=== PATIENT | female | born 1980 | race American Indian/Alaskan Native ===

== ENCOUNTER 2021-05-17 09:12 | Inpatient (IN) | payer BC ==
[2021-05-17 13:08] LABS: Alanine Aminotransferase 15 units/L (7-56); Albumin 3.3 g/dL (3.9-5); Blood Urea Nitrogen 7 mg/dL (7-17); Hemolysis Index 113
[2021-05-17 13:12] LABS: BUN/Creatinine Ratio 14
[2021-05-17] MEDS ORDERED: METOCLOPRAMIDE 10 MG/2 ML INJ IV SCH (13:15)
[2021-05-17] MEDS ORDERED: FAMOTIDINE 20 MG/2 ML INJ IV SCH (13:15)
[2021-05-17] MEDS ORDERED: BICITRA ORAL LIQD 30ML PO SCH (13:15)
[2021-05-17] MEDS ORDERED: LACTATED RINGERS 1,000 ML IV SCH (13:15)
[2021-05-17 13:49] LABS: Basophils % (Auto) 0.5 % (0.0-1.8); Eosinophils % (Auto) 0.2 % (0.0-4.3); Hematocrit 35.7 % (30.3-42.9); Hemoglobin 11.3 gm/dl (10.1-14.3); Lymphocytes # (Auto) 1.5 K/mm3 (1.2-5.4); Lymphocytes % (Auto) 17.4 % (13.4-35.0); Mean Corpuscular HGB Conc 32 % (30-34); Mean Corpuscular Volume 82 fl (79-97); Monocytes # (Auto) 0.6 K/mm3 (0.0-0.8); Monocytes % (Auto) 7.2 % (0.0-7.3); Platelet Count 357 K/mm3 (140-440); Red Blood Count 4.37 M/mm3 (3.65-5.03); Red Cell Distribution Width 19.8 % (13.2-15.2)
[2021-05-17] MEDS ORDERED: ceFAZolin/Water 2 GM/20 ML 2 GM/20 ML SYRINGE IV NR (14:00)
[2021-05-17] MEDS ORDERED: OXYTOCIN DRIP 30 UNITS/500 ML BAG IV SCH ×2 (14:00→21:25)
[2021-05-17] MEDS ORDERED: BUPIVACAINE/PF (0.5%) 5 MG/1 ML 30 ML VIAL INFILTRATI ONE (15:37)
[2021-05-17] MEDS ORDERED: KETOROLAC 30 MG/1 ML INJ ONE (15:37)
[2021-05-17] MEDS ORDERED: ONDANSETRON 4 MG/2 ML INJ ONE ×2 (15:37)
[2021-05-17] MEDS ORDERED: LIDOCAINE MPF (2%) 20 MG/1 ML VIAL 5 ML ONE (15:37)
[2021-05-17] MEDS ORDERED: dexAMETHasone 20 MG/5 ML VIAL ONE (15:38)
[2021-05-17] MEDS ORDERED: MIDAZOLAM 2 MG/2 ML INJ ONE (15:38)
[2021-05-17] MEDS ORDERED: KETAMINE/STERILE WATER 50 MG/ML SYRINGE ONE (15:39)
--- NOTE | 2021-05-17 15:48 | Anesthesia Day of Surgery ---
Anesthesia Day of Surgery - Day of Surgery Patient Examined: Yes Patient H&P Reviewed: Yes Patient is NPO: Yes
--- NOTE | 2021-05-17 15:48 | Anesthesia Consultation ---
Anesthesia Consult and Med Hx Date of service: 05/17/21 - Airway Anesthetic Teeth Evaluation: Good ROM Head & Neck: Adequate Mental/Hyoid Distance: Adequate Mallampati Class: Class II Intubation Access Assessment: Probably Good - Pulmonary Exam CTA: Yes - Cardiac Exam Cardiac Exam: RRR - Pre-Operative Health Status ASA Pre-Surgery Classification: ASA3 Proposed Anesthetic Plan: Spinal - Pulmonary Hx Asthma: No - Cardiovascular System Hx Hypertension: Yes - Central Nervous System Hx Seizures: No Hx Psychiatric Problems: No - Endocrine Hx Renal Disease: No Hx Hypothyroidism: Yes Hx Hyperthyroidism: No - Hematic Hx Anemia: No Hx Sickle Cell Disease: No - Other Systems Hx Alcohol Use: No Hx Obesity: Yes
--- NOTE | 2021-05-17 16:07 | History and Physical Report ---
History of Present Illness Date of examination: 05/17/21 Date of admission: 05/17/2021 Chief complaint: My baby History of present illness: Pt is 40 year old who presents at 35 weeks with IUFD found this morning on ultrasound. Pt has a history of chronic hypertension and diabetes controlled with oral medications. Pt entered care in the 2nd trimester with Dr Macario and has had a relatively stable course until today when on routine ultrasound, she was found to have a demise. Past History Past Medical History: hypertension, diabetes Past Surgical History: cholecystectomy Family/Genetic History: none Social history: - Obstetrical History Expected Date of Delivery: 06/17/21 Actual Gestation: 35 Week(s) 4 Day(s) : 4 Para: 3 Number of Living Children: 3 Medications and Allergies Allergies Allergy/AdvReac Type Severity Reaction Status Date / Time Penicillins Allergy Hives Verified 05/17/21 11:30 Active Meds: Active Medications Citric Acid/Sodium Citrate (Bicitra Oral Liqd 30ml) 30 ml PO ONCE ALYSA Stop: 05/17/21 23:00 Last Admin: 05/17/21 15:17 Dose: 30 ml Famotidine (Famotidine 20 Mg/2 Ml Inj) 20 mg IV ONCE ALYSA Stop: 05/17/21 23:00 Last Admin: 05/17/21 15:17 Dose: 20 mg Lactated Ringer's (Lactated Ringers) 1,000 mls @ 2,250 mls/hr IV PREOP ALYSA Stop: 05/18/21 13:42 Last Admin: 05/17/21 13:40 Dose: 2,250 mls/hr Oxytocin/Sodium Chloride (Pitocin/Ns 30 Unit/500ml) 30 units in 500 mls @ 0 mls/hr IV TITR ALYSA; Protocol Cefazolin Sodium (Ancef/Sterile Water 2 Gm/20 Ml) 2 gm in 20 mls @ 80 mls/hr IV PREOP NR; Protocol Stop: 05/17/21 23:00 Clindamycin HCl (Cleocin 900 Mg/50 Ml) 900 mg in 50 mls @ 100 mls/hr IV PREOP NR; Protocol Stop: 05/17/21 23:00 Metoclopramide HCl (Metoclopramide 10 Mg/2 Ml Inj) 10 mg IV ONCE ALYSA Stop: 05/17/21 23:00 Last Admin: 05/17/21 15:17 Dose: 10 mg Review of Systems All systems: negative Constitutional: fatigue, weakness Genitourinary: deferred - Vital Signs Vital signs: Vital Signs Pulse BP 96 H 175/82 05/17/21 10:15 05/17/21 10:15 Temp Pulse Resp BP Pulse Ox 99.2 F 94 H 20 172/93 05/17/21 10:26 05/17/21 12:48 05/17/21 10:26 05/17/21 12:48 - Physical Exam Breasts: Positive: deferred Cardiovascular: Regular rate, Normal S1, Normal S2 Lungs: Positive: Clear to auscultation, Normal air movement Abdomen: Positive: normal appearance, soft, normal bowel sounds. Negative: distention, tenderness Genitourinary (Female): Positive: normal external genitalia, normal perenium Vulva: both: normal Vagina: Positive: normal moisture. Negative: discharge Cervix: Negative: lesion, discharge Uterus: Positive: normal size, normal contour Adnexa: both: normal Anus/Rectum: Positive: normal perianal skin, heme negative. Negative: rectal mass, hemorrhoids Extremities: Deep Tendon Reflex Grade: Normal +2 - Obstetrical FHR: other Results Result Diagrams: 05/17/21 10:50 05/17/21 10:50 Abnormal lab results 05/17/21 05/17/21 Range/Units 10:50 10:50 MCH 26 L (28-32) pg RDW 19.8 H (13.2-15.2) % Seg Neutrophils % 74.7 H (40.0-70.0) % Carbon Dioxide 19 L (22-30) mmol/L Creatinine 0.5 L (0.6-1.2) mg/dL Glucose 104 H (65-100) mg/dL Alkaline Phosphatase 151 H (35-129) units/L Albumin 3.3 L (3.9-5) g/dL All other labs normal. Assessment and Plan IUFD at 35 weeks here for management. Pt requested primary instead of induction process. Will now proceed with primary . Consents signed and placed on chart
[2021-05-17] MEDS ORDERED: SODIUM CHLORIDE 0.9% IRR 1,500 ML BOTTLE IR ONE (16:37)
[2021-05-17] MEDS ORDERED: WATER FOR IRRIG STERILE 1,500 ML BOTTLE IR ONE (16:37)
[2021-05-17] MEDS ORDERED: OXYTOCIN 10 UNIT/1 ML INJ ONE (17:24)
--- NOTE | 2021-05-17 17:33 | Procedure Note ---
OB Delivery Note - Delivery Date of Delivery: 05/17/21 Surgeon: JOSE FELIX Estimated blood loss: other (400cc) - Section Preop diagnosis: other (IUFD) Postop diagnosis: same section procedure: primary low transverse Disposition: PACU Complications: none Narrative: see op report - Infant A at 1 minute: 0 at 5 minutes: 0 Gender: Female (6 pounds 11 ounces)
--- NOTE | 2021-05-17 18:20 | Operative Report ---
Operative Report Operative Report: Preoperative diagnosis: Intrauterine at 35-47 weeks 2. IUFD 3. Patient refused trial of labor Postoperative diagnosis: Same Procedure: Primary low transverse section Surgeon: Dr. Emily Macario EBL: 400 cc Urine output: 200 mL IV fluids: 1100 cc mL Findings: Nonviable female in the vertex presentation. Weight 6 lbs. 11 oz. 3030 g Apgars 8 and 9. Otherwise normal pelvic anatomy Specimens: Placenta Complications: None Procedure: The patient was admitted to the OR with IV running and in place. She was properly identified as herself. She was given spinal anesthesia in the OR without difficulty. She was placed in the dorsal supine position with a leftward tilt. A Adkins catheter was inserted. She was then prepped and draped in the normal sterile fashion. An Allis test was used to confirm adequate anesthesia. Once confirmed, the incision was made with the scalpel and carried to the underlying fascia using the scalpel and the Bovie. The fascia was incised in the midline and incision was extended bilaterally using the curved Flanagan scissors. The fascia was then dissected from the underlying rectus muscles in a series of sharp and blunt dissection using the Flanagan scissors. Muscles were in the in the midline sharply using Metzenbaum scissors and the peritoneum was entered into bluntly using the surgeon's fingers. A bladder blade was then placed into the incision to protect the bladder. Following this the bladder flap was created. Hysterotomy incision was then made in the scalpel. Upon uterine entry, the amniotic sac was ruptured for clear fluid. The infant was then delivered without difficulty. Her mouth and nose were suctioned on the field. The cord was clamped and cut and he was handed to the L&D staff. The uterus was then exteriorized and cleared of all clots and debris. The hysterotomy incision was then closed in a running locked fashion using 0 Vicryl. The abdomen was then copiously irrigated with warm normal saline. Attention was turned the the fallopian tubes. Each tube was identified and followed out the the fimbriated end. Each tube was grasped in the midportion and ligated in the [place] style Tubal ligation. Following this the uterus was replaced into the abdominal cavity. At this point the muscles were reapproximated in the midline using individual sutures of 0 Vicryl. Following this the fascia was closed in a running fashion using 0 Vicryl. Tissue was then copiously irrigated. Retention sutures were placed in the subcutaneous fat tissue Skin was closed in a running fashion using 3-0 Monocryl. The sponge lap needle and instrument counts were correct 2. The patient tolerated the procedure well. She was taken to recovery in stable condition.
[2021-05-17] MEDS ORDERED: NalbUPHINE 10 MG/1 ML INJ IV PRN (20:05)
[2021-05-17] MEDS ORDERED: ACETAMINOPHEN 325 MG TAB PO PRN (20:05)
[2021-05-17] MEDS ORDERED: MINERAL OIL 30 ML ORAL LIQD PO PRN (20:05)
[2021-05-17] MEDS ORDERED: fentaNYL 100 MCG/2 ML INJ IV PRN (20:05)
[2021-05-17] MEDS ORDERED: MORPHINE 4 MG/1 ML INJ IV PRN (21:25)
[2021-05-17] MEDS ORDERED: SIMETHICONE 80 MG CHEW TAB PO PRN (21:25)
[2021-05-17] MEDS ORDERED: NALOXONE 0.4 MG/1 ML INJ IV PRN (21:25)
[2021-05-17] MEDS ORDERED: ONDANSETRON 4 MG/2 ML INJ IV PRN (21:25)
[2021-05-17] MEDS ORDERED: WITCH HAZEL/ GLYCERIN PAD TP PRN (21:25)
[2021-05-17] MEDS ORDERED: LANOLIN/ZINC/DIMETHICONE (LANSINOH) 7 GM TP PRN (21:25)
[2021-05-17] MEDS: KETOROLAC 30 MG/1 ML INJ IV PRN (23:50)
[2021-05-18] MEDS: oxyCODONE /ACETAMINOPHEN 5-325MG TAB PO PRN ×3 (00:36→12:35)
[2021-05-18] MEDS ORDERED: NIFEdipine XL 60 MG TAB PO ONE (01:25)
[2021-05-18] MEDS: hydrALAZINE 20 MG/1 ML INJ IV PRN ×3 (03:05→04:27)
[2021-05-18] MEDS: IBUPROFEN 800 MG TAB PO PRN ×2 (04:05→11:04)
--- NOTE | 2021-05-18 05:46 | Event Note ---
Date: 05/18/21 On-call provider notified that BP was elevated from 160-180/90s with requirement of 3 doses of hydralazine. Plan to transfer pt back to labor and delivery for treatment of superimposed preeclampsia with magnesium sulfate for seizure prophylaxis.
[2021-05-18] MEDS ORDERED: CALCIUM GLUCONATE 1000 MG/10 ML INJ IV PRN (07:35)
[2021-05-18] MEDS ORDERED: MAGNESIUM SULFATE 4 GM/100 ML BAG IV ONE (07:35)
[2021-05-18] MEDS ORDERED: LACTATED RINGERS 1,000 ML IV SCH (07:45)
[2021-05-18] MEDS ORDERED: CALCIUM GLUCONATE 1,000 MG/NS 100 ML PREMIX IV PRN (08:00)
[2021-05-18] MEDS: LACTATED RINGERS 1,000 ML IV SCH (08:28)
[2021-05-18] MEDS: MAGNESIUM SULFATE 40GM/1000ML 40 GM/1,000 ML BAG IV SCH (08:29)
--- NOTE | 2021-05-18 09:25 | Post Anesthesia Evaluation ---
- Post Anesthesia Evaluation Patient Participated: Yes Airway Patent: Yes Stable Respiratory Function: Yes Nausea/Vomiting: No Temp > 96.8F: Yes Pain Manageable: Yes Adequeate Hydration: Yes Anesthesia Complications: No Block Receding Appropriately: Yes
[2021-05-18] MEDS: KETOROLAC 30 MG/1 ML INJ IV PRN ×2 (15:58→21:09)
[2021-05-18] MEDS ORDERED: DEXTROSE 50% IN WATER (25GM) 50 ML SYRINGE IV PRN (16:37)
[2021-05-18] MEDS ORDERED: DEXTROSE 10% *Hypoglycemia IV PRN (16:45)
--- NOTE | 2021-05-18 17:17 | Progress Note ---
Assessment and Plan A: POD#1 s/p primary at 35 wks for IUFD Chronic HTN with superimposed preeclamspia on Magensium sulfate for seizure prophylaxis. Pt declines Procardia. Begin Labetalol 200 mg BID. Prediabetic per pt, [place] with sliding scale insulin PRN P: Continue routine postop care Closely monitor clinical status Subjective - Subjective Date of service: 05/18/21 Principal diagnosis: s/p primary , IUFD, morbid obesity, prediabetic, preeclampsia Interval history: Pt without complaints. + flatus. No bowel movement yet. Patient reports: appetite normal, pain well controlled, flatus, no voiding normally (aponte ), no bowel movement, no ambulating normally (SCDs in place ) [place]: Objective - Vital Signs Latest vital signs: Vital Signs Temp Pulse Resp BP BP Pulse Ox Pulse Ox 05/18/21 17:09 100 H 100 05/18/21 17:04 107 H 100 05/18/21 17:00 96 H 152/79 05/18/21 16:59 100 H 100 05/18/21 16:54 100 H 100 05/18/21 16:49 97 H 100 05/18/21 16:44 107 H 100 05/18/21 16:39 110 H 100 05/18/21 16:34 99 H 100 05/18/21 16:29 104 H 100 05/18/21 16:24 107 H 100 05/18/21 16:19 98 H 97 05/18/21 16:14 89 100 05/18/21 16:09 94 H 100 05/18/21 16:04 86 100 05/18/21 16:00 98.0 F 89 16 146/72 146/72 100 05/18/21 15:59 89 100 05/18/21 15:54 92 H 100 05/18/21 15:49 94 H 100 05/18/21 15:44 92 H 100 05/18/21 15:39 91 H 100 05/18/21 15:34 95 H 100 05/18/21 15:29 92 H 99 05/18/21 15:24 107 H 100 05/18/21 15:19 92 H 99 05/18/21 15:14 109 H 100 05/18/21 15:09 99 H 98 05/18/21 15:04 105 H 99 05/18/21 15:00 93 H 16 135/70 05/18/21 14:59 90 99 05/18/21 14:54 108 H 99 05/18/21 14:49 100 H 100 05/18/21 14:44 96 H 100 05/18/21 14:39 103 H 100 05/18/21 14:34 112 H 100 05/18/21 14:29 97 H 99 05/18/21 14:24 103 H 100 05/18/21 14:19 100 H 100 05/18/21 14:14 94 H 100 05/18/21 14:09 95 H 100 05/18/21 14:04 105 H 100 05/18/21 14:00 98.2 F 16 98 97 05/18/21 13:59 94 H 100 05/18/21 13:54 97 H 100 05/18/21 13:50 93 H 143/82 05/18/21 13:49 95 H 100 05/18/21 13:44 92 H 100 05/18/21 13:39 100 H 100 05/18/21 13:34 83 99 05/18/21 13:29 84 99 05/18/21 13:24 84 100 05/18/21 13:20 93 H 136/75 05/18/21 13:19 91 H 99 05/18/21 13:14 84 100 05/18/21 13:09 80 99 05/18/21 13:04 98 H 100 05/18/21 12:59 89 100 05/18/21 12:54 91 H 100 05/18/21 12:51 84 154/82 05/18/21 12:49 87 100 05/18/21 12:44 82 99 05/18/21 12:39 86 99 05/18/21 12:34 82 100 05/18/21 12:29 88 100 05/18/21 12:24 86 99 05/18/21 12:20 89 137/75 05/18/21 12:19 103 H 100 05/18/21 12:14 88 100 05/18/21 12:12 99 05/18/21 12:09 95 H 100 05/18/21 12:04 98 H 100 05/18/21 11:59 81 100 05/18/21 11:13 99 H 100 05/18/21 11:08 102 H 99 05/18/21 11:03 113 H 99 05/18/21 10:58 103 H 100 05/18/21 10:53 106 H 100 05/18/21 10:49 106 H 157/84 05/18/21 10:48 106 H 100 05/18/21 10:43 110 H 100 05/18/21 10:38 110 H 100 05/18/21 10:37 107 H 149/74 05/18/21 10:33 102 H 100 05/18/21 10:28 97 H 100 05/18/21 10:23 103 H 100 05/18/21 10:19 104 H 162/74 05/18/21 10:18 107 H 100 05/18/21 10:15 98 05/18/21 10:13 96 H 100 05/18/21 10:08 97 H 100 05/18/21 10:03 109 H 100 05/18/21 09:58 92 H 99 05/18/21 09:53 98 H 100 05/18/21 09:49 101 H 136/69 05/18/21 09:48 105 H 100 05/18/21 09:43 103 H 100 05/18/21 09:38 100 H 100 05/18/21 09:33 96 H 99 05/18/21 09:28 93 H 100 05/18/21 09:23 97 H 100 05/18/21 09:19 94 H 142/68 05/18/21 09:18 98 H 100 05/18/21 09:13 105 H 100 05/18/21 09:08 94 H 100 05/18/21 09:03 89 100 05/18/21 08:58 90 100 05/18/21 08:53 103 H 99 05/18/21 08:48 86 99 05/18/21 08:41 88 154/74 05/18/21 08:36 90 155/77 05/18/21 08:31 93 H 160/84 05/18/21 08:30 99 05/18/21 08:27 93 H 147/83 05/18/21 06:45 86 16 147/84 98 05/18/21 06:31 93 H 16 140/80 90 05/18/21 06:16 91 H 16 155/82 05/18/21 05:58 94 H 155/82 98 05/18/21 05:42 83 16 173/89 99 03/12/22 05:26 92 H 16 163/96 99 05/18/21 05:06 90 16 177/88 98 05/18/21 05:01 87 16 175/84 97 05/18/21 04:53 91 H 16 180/92 100 05/18/21 04:31 88 16 180/101 86 05/18/21 04:27 84 188/101 05/18/21 04:26 188/101 05/18/21 04:22 84 16 189/103 100 05/18/21 04:06 92 H 16 180/87 98 05/18/21 04:01 87 16 191/89 99 05/18/21 03:56 87 16 179/95 100 05/18/21 03:51 16 177/101 05/18/21 03:47 100 H 185/95 05/18/21 03:46 87 16 185/95 100 05/18/21 03:05 87 187/110 05/18/21 01:08 91 H 16 165/95 99 05/18/21 00:48 88 16 167/105 100 05/18/21 00:36 18 05/17/21 20:00 100 05/17/21 19:40 97.7 F 89 14 130/80 100 05/17/21 18:40 97.7 F 100 H 20 126/81 100 05/17/21 18:25 94 H 17 123/78 100 05/17/21 18:10 100 H 12 116/75 100 05/17/21 17:55 95 H 16 112/75 100 05/17/21 17:50 88 16 107/71 100 05/17/21 17:45 96 H 18 111/72 100 05/17/21 17:40 98.4 F 92 H 16 112/65 100 Intake and Output 05/18/21 05/18/21 05/18/21 06:59 14:59 22:59 Intake Total 360 Output Total 390 975 175 Balance 2 -475 Intake: Oral 120 Intake, Free Water 240 Output: Urine 390 975 175 Indwelling Catheter 390 975 175 Other: Total, Intake Amount 120 Total, Output Amount 100 175 175 - Exam Breasts: Present: deferred Abdomen: Present: soft (obese, tympanic ) Uterus: Present: fundal height below umbilicus Extremities: Present: edema (SCDs in place ) Incision: Present: dressed - Labs Labs: Abnormal lab results 05/18/21 Range/Units 13:59 Magnesium 4.10 H (1.7-2.3) mg/dL
[2021-05-18 17:37] LABS: Hematocrit 27.1 % (30.3-42.9); Hemoglobin 9.4 gm/dl (10.1-14.3)
[2021-05-19] MEDS: KETOROLAC 30 MG/1 ML INJ IV PRN (06:00)
[2021-05-19] MEDS: LACTATED RINGERS 1,000 ML IV SCH (06:01)
[2021-05-19] MEDS: MAGNESIUM SULFATE 40GM/1000ML 40 GM/1,000 ML BAG IV SCH (06:01)
[2021-05-19] MEDS: oxyCODONE /ACETAMINOPHEN 5-325MG TAB PO PRN ×2 (08:10→13:27)
[2021-05-19] MEDS ORDERED: LACTULOSE 20 GM/30 ML ORAL LIQD PO ONE (09:51)
--- NOTE | 2021-05-19 09:56 | Progress Note ---
Assessment and Plan A: POD#2 s/p primary at 35 wks for IUFD Chronic HTN with superimposed preeclamspia on Magensium sulfate for seizure prophylaxis. Pt declines Procardia. Begin Labetalol 200 mg BID. Prediabetic per pt, Acc[place]ce[place] with sliding scale insulin PRN Morbid Obesity Anemia- asymptomatic P: Continue routine postop care Discharge later today with follow up on 05/21/[address] Macario Subjective - Subjective Date of service: 05/19/21 Principal diagnosis: s/p primary , IUFD, morbid obesity, prediabetic, preeclampsia Interval history: Pt without complaints. + flatus. She is anxious to go home and be in her own space. She has contacted the home to begin arrangements. She also has an appt with Dr Macario scheduled for Friday May 21, 2021. Patient reports: appetite normal, voiding normally, pain well controlled, flatus, ambulating normally, no bowel movement [place]: Objective - Vital Signs Latest vital signs: Vital Signs Temp Pulse Resp BP BP BP Pulse Ox 05/19/21 09:01 93 H 87 05/19/21 09:00 93 H 100 05/19/21 08:58 85 144/73 05/19/21 08:55 89 100 05/19/21 08:50 87 100 05/19/21 08:45 89 100 05/19/21 08:40 91 H 100 05/19/21 08:35 90 100 05/19/21 08:30 100 H 100 05/19/21 08:25 99 H 100 05/19/21 08:20 98 H 100 05/19/21 08:18 90 94 05/19/21 08:15 90 100 05/19/21 08:10 89 100 05/19/21 08:05 103 H 100 05/19/21 08:00 98.3 F 79 18 136/61 100 05/19/21 07:55 77 99 05/19/21 07:50 82 100 05/19/21 07:45 94 H 100 05/19/21 07:40 83 99 05/19/21 07:35 80 100 05/19/21 07:30 85 96 05/19/21 07:29 80 92 05/19/21 07:25 80 99 05/19/21 07:20 81 99 05/19/21 07:15 82 100 05/19/21 07:10 101 H 100 05/19/21 07:08 84 94 05/19/21 07:05 79 98 05/19/21 07:00 79 142/71 99 05/19/21 06:55 81 100 05/19/21 06:50 76 100 05/19/21 06:45 77 100 05/19/21 06:40 76 100 05/19/21 06:35 75 100 05/19/21 06:30 94 H 100 05/19/21 06:25 78 100 05/19/21 06:20 79 100 05/19/21 06:15 78 100 05/19/21 06:10 82 100 05/19/21 06:05 78 100 05/19/21 06:00 87 18 135/71 100 05/19/21 05:55 82 100 05/19/21 05:50 86 100 05/19/21 05:45 104 H 100 05/19/21 05:40 88 100 05/19/21 05:35 86 100 05/19/21 05:30 101 H 100 05/19/21 05:25 80 100 05/19/21 05:20 76 100 05/19/21 05:15 85 100 05/19/21 05:10 80 100 05/19/21 05:05 83 100 05/19/21 05:00 77 141/72 100 05/19/21 04:55 80 99 05/19/21 04:50 80 99 05/19/21 04:45 83 100 05/19/21 04:40 84 97 05/19/21 04:38 82 92 05/19/21 04:35 85 96 05/19/21 04:33 88 83 L 05/19/21 04:30 77 99 05/19/21 04:25 78 99 05/19/21 04:20 78 99 05/19/21 04:15 79 100 05/19/21 04:11 82 90 05/19/21 04:10 79 91 05/19/21 04:05 87 99 05/19/21 04:00 78 126/67 100 05/19/21 03:55 78 99 05/19/21 03:50 80 99 05/19/21 03:45 82 99 05/19/21 03:40 76 98 05/19/21 03:35 82 99 05/19/21 03:30 78 99 05/19/21 03:25 77 99 05/19/21 03:20 79 99 05/19/21 03:15 84 99 05/19/21 03:10 80 99 05/19/21 03:05 79 99 05/19/21 03:00 81 16 131/71 131/71 100 05/19/21 01:55 84 100 05/19/21 01:50 79 99 05/19/21 01:45 80 99 05/19/21 01:40 79 98 05/19/21 01:35 78 98 05/19/21 01:30 79 98 05/19/21 01:25 77 98 05/19/21 01:20 78 98 05/19/21 01:15 81 98 05/19/21 01:10 80 99 05/19/21 01:05 78 99 05/19/21 01:00 77 18 122/67 122/67 100 05/19/21 00:54 77 99 05/19/21 00:49 87 99 05/19/21 00:44 80 98 05/19/21 00:39 80 98 05/19/21 00:34 84 98 05/19/21 00:29 79 98 05/19/21 00:24 77 98 05/19/21 00:19 91 H 100 05/19/21 00:17 88 94 05/19/21 00:14 80 99 05/19/21 00:09 78 99 05/19/21 00:04 76 99 05/19/21 00:00 98.3 F 81 18 121/60 121/60 99 05/18/21 23:59 82 100 05/18/21 23:54 88 99 05/18/21 23:49 79 98 05/18/21 23:44 78 98 05/18/21 23:39 77 98 03 23:34 79 98 03 23:29 82 98 05/18/21 23:24 80 98 05/18/21 23:19 78 98 05/18/21 23:14 79 97 05/18/21 23:09 79 97 03 23:04 77 98 03 23:00 81 16 121/59 121/59 100 05/18/21 22:59 85 100 05/18/21 22:54 81 98 03 22:49 75 98 05/18/21 22:44 79 98 05/18/21 22:39 79 98 05/18/21 22:34 78 98 05/18/21 22:29 79 98 05/18/21 22:24 78 98 05/18/21 22:19 81 98 05/18/21 22:14 90 100 05/18/21 22:09 86 100 05/18/21 22:04 87 98 05/18/21 22:00 98.2 F 85 16 128/65 128/65 98 05/18/21 21:59 89 100 05/18/21 21:54 90 100 05/18/21 21:49 89 100 05/18/21 21:44 90 100 05/18/21 21:39 83 100 05/18/21 21:34 85 100 05/18/21 21:29 104 H 100 05/18/21 21:24 99 H 100 05/18/21 21:19 88 100 05/18/21 21:14 86 100 05/18/21 21:10 94 H 140/70 05/18/21 21:09 87 18 100 05/18/21 21:04 95 H 100 05/18/21 21:00 94 H 18 140/70 140/70 98 05/18/21 20:59 86 100 05/18/21 20:54 85 99 05/18/21 20:49 89 100 05/18/21 20:44 120 H 100 05/18/21 20:39 89 99 05/18/21 20:34 93 H 100 05/18/21 20:29 89 100 05/18/21 20:24 86 100 05/18/21 20:19 93 H 100 05/18/21 20:14 84 100 05/18/21 20:09 92 H 100 05/18/21 20:04 91 H 100 05/18/21 20:00 90 138/67 05/18/21 19:59 89 100 05/18/21 19:54 94 H 100 05/18/21 19:49 100 H 100 05/18/21 19:44 97 H 100 05/18/21 19:39 94 H 100 05/18/21 19:34 89 100 05/18/21 19:29 96 H 100 05/18/21 19:24 84 100 05/18/21 19:19 89 100 05/18/21 19:14 96 H 100 05/18/21 19:09 89 100 05/18/21 19:04 94 H 100 05/18/21 19:00 87 137/69 05/18/21 18:59 89 100 05/18/21 18:54 88 100 05/18/21 18:49 93 H 100 05/18/21 18:44 89 100 05/18/21 18:39 98 H 100 05/18/21 18:34 95 H 100 05/18/21 18:29 93 H 100 05/18/21 18:24 92 H 100 05/18/21 18:19 87 100 05/18/21 18:14 99 H 100 05/18/21 18:09 94 H 100 05/18/21 18:04 90 100 05/18/21 18:00 90 16 137/68 05/18/21 17:59 89 100 05/18/21 17:54 103 H 100 05/18/21 17:49 106 H 100 05/18/21 17:44 93 H 100 05/18/21 17:39 94 H 100 05/18/21 17:34 98 H 100 05/18/21 17:29 108 H 100 05/18/21 17:24 98 H 100 05/18/21 17:19 106 H 100 05/18/21 17:14 109 H 100 05/18/21 17:09 100 H 100 05/18/21 17:04 107 H 100 05/18/21 17:00 96 H 16 152/79 05/18/21 16:59 100 H 100 05/18/21 16:54 100 H 100 05/18/21 16:49 97 H 100 05/18/21 16:44 107 H 100 05/18/21 16:39 110 H 100 05/18/21 16:34 99 H 100 05/18/21 16:29 104 H 100 05/18/21 16:24 107 H 100 05/18/21 16:19 98 H 97 05/18/21 16:14 89 100 05/18/21 16:09 94 H 100 05/18/21 16:04 86 100 05/18/21 16:00 98.0 F 89 16 146/72 146/72 100 05/18/21 15:59 89 100 05/18/21 15:54 92 H 100 05/18/21 15:49 94 H 100 05/18/21 15:44 92 H 100 05/18/21 15:39 91 H 100 05/18/21 15:34 95 H 100 05/18/21 15:29 92 H 99 05/18/21 15:24 107 H 100 05/18/21 15:19 92 H 99 05/18/21 15:14 109 H 100 05/18/21 15:09 99 H 98 05/18/21 15:04 105 H 99 05/18/21 15:00 93 H 16 135/70 05/18/21 14:59 90 99 05/18/21 14:54 108 H 99 05/18/21 14:49 100 H 100 05/18/21 14:44 96 H 100 05/18/21 14:39 103 H 100 05/18/21 14:34 112 H 100 05/18/21 14:29 97 H 99 05/18/21 14:24 103 H 100 05/18/21 14:19 100 H 100 05/18/21 14:14 94 H 100 05/18/21 14:09 95 H 100 05/18/21 14:04 105 H 100 05/18/21 14:00 98.2 F 16 98 05/18/21 13:59 94 H 100 05/18/21 13:54 97 H 100 05/18/21 13:50 93 H 143/82 05/18/21 13:49 95 H 100 05/18/21 13:44 92 H 100 05/18/21 13:39 100 H 100 05/18/21 13:34 83 99 05/18/21 13:29 84 99 05/18/21 13:24 84 100 05/18/21 13:20 93 H 136/75 05/18/21 13:19 91 H 99 05/18/21 13:14 84 100 05/18/21 13:09 80 99 05/18/21 13:04 98 H 100 05/18/21 12:59 89 100 05/18/21 12:54 91 H 100 05/18/21 12:51 84 154/82 05/18/21 12:49 87 100 05/18/21 12:44 82 99 05/18/21 12:39 86 99 05/18/21 12:34 82 100 03/12/22 12:29 88 100 05/18/21 12:24 86 99 05/18/21 12:20 89 137/75 05/18/21 12:19 103 H 100 05/18/21 12:14 88 100 05/18/21 12:12 05/18/21 12:09 95 H 100 05/18/21 12:04 98 H 100 05/18/21 11:59 81 100 05/18/21 11:13 99 H 100 05/18/21 11:08 102 H 99 05/18/21 11:03 113 H 99 05/18/21 10:58 103 H 100 05/18/21 10:53 106 H 100 05/18/21 10:49 106 H 157/84 05/18/21 10:48 106 H 100 05/18/21 10:43 110 H 100 05/18/21 10:38 110 H 100 05/18/21 10:37 107 H 149/74 05/18/21 10:33 102 H 100 05/18/21 10:28 97 H 100 05/18/21 10:23 103 H 100 05/18/21 10:19 104 H 162/74 05/18/21 10:18 107 H 100 05/18/21 10:15 05/18/21 10:13 96 H 100 05/18/21 10:08 97 H 100 05/18/21 10:03 109 H 100 05/18/21 09:58 92 H 99 05/18/21 09:53 98 H 100 05/18/21 09:49 101 H 136/69 05/18/21 09:48 105 H 100 05/18/21 09:43 103 H 100 05/18/21 09:38 100 H 100 05/18/21 09:33 96 H 99 05/18/21 09:28 93 H 100 05/18/21 09:23 97 H 100 05/18/21 09:19 94 H 142/68 05/18/21 09:18 98 H 100 05/18/21 09:13 105 H 100 05/18/21 09:08 94 H 100 05/18/21 09:03 89 100 05/18/21 08:58 90 100 Pulse Ox 05/19/21 09:01 05/19/21 09:00 05/19/21 08:58 05/19/21 08:55 05/19/21 08:50 05/19/21 08:45 05/19/21 08:40 05/19/21 08:35 05/19/21 08:30 05/19/21 08:25 05/19/21 08:20 05/19/21 08:18 05/19/21 08:15 05/19/21 08:10 05/19/21 08:05 05/19/21 08:00 100 05/19/21 07:55 05/19/21 07:50 05/19/21 07:45 05/19/21 07:40 05/19/21 07:35 05/19/21 07:30 05/19/21 07:29 05/19/21 07:25 05/19/21 07:20 05/19/21 07:15 05/19/21 07:10 05/19/21 07:08 05/19/21 07:05 05/19/21 07:00 05/19/21 06:55 05/19/21 06:50 05/19/21 06:45 05/19/21 06:40 05/19/21 06:35 05/19/21 06:30 05/19/21 06:25 05/19/21 06:20 05/19/21 06:15 05/19/21 06:10 05/19/21 06:05 05/19/21 06:00 05/19/21 05:55 05/19/21 05:50 05/19/21 05:45 05/19/21 05:40 05/19/21 05:35 05/19/21 05:30 05/19/21 05:25 05/19/21 05:20 05/19/21 05:15 05/19/21 05:10 05/19/21 05:05 05/19/21 05:00 05/19/21 04:55 05/19/21 04:50 05/19/21 04:45 05/19/21 04:40 05/19/21 04:38 05/19/21 04:35 05/19/21 04:33 05/19/21 04:30 05/19/21 04:25 05/19/21 04:20 05/19/21 04:15 05/19/21 04:11 05/19/21 04:10 05/19/21 04:05 05/19/21 04:00 05/19/21 03:55 05/19/21 03:50 05/19/21 03:45 05/19/21 03:40 05/19/21 03:35 05/19/21 03:30 05/19/21 03:25 05/19/21 03:20 05/19/21 03:15 05/19/21 03:10 05/19/21 03:05 05/19/21 03:00 05/19/21 01:55 05/19/21 01:50 05/19/21 01:45 05/19/21 01:40 05/19/21 01:35 05/19/21 01:30 05/19/21 01:25 05/19/21 01:20 05/19/21 01:15 05/19/21 01:10 05/19/21 01:05 05/19/21 01:00 05/19/21 00:54 05/19/21 00:49 05/19/21 00:44 05/19/21 00:39 05/19/21 00:34 05/19/21 00:29 05/19/21 00:24 05/19/21 00:19 05/19/21 00:17 05/19/21 00:14 05/19/21 00:09 05/19/21 00:04 05/19/21 00:00 05/18/21 23:59 05/18/21 23:54 05/18/21 23:49 05/18/21 23:44 05/18/21 23:39 05/18/21 23:34 05/18/21 23:29 05/18/21 23:24 05/18/21 23:19 05/18/21 23:14 05/18/21 23:09 05/18/21 23:04 05/18/21 23:00 05/18/21 22:59 05/18/21 22:54 05/18/21 22:49 05/18/21 22:44 05/18/21 22:39 05/18/21 22:34 05/18/21 22:29 05/18/21 22:24 05/18/21 22:19 05/18/21 22:14 05/18/21 22:09 05/18/21 22:04 05/18/21 22:00 05/18/21 21:59 05/18/21 21:54 05/18/21 21:49 05/18/21 21:44 05/18/21 21:39 05/18/21 21:34 05/18/21 21:29 05/18/21 21:24 05/18/21 21:19 05/18/21 21:14 05/18/21 21:10 05/18/21 21:09 05/18/21 21:04 05/18/21 21:00 05/18/21 20:59 05/18/21 20:54 05/18/21 20:49 05/18/21 20:44 05/18/21 20:39 05/18/21 20:34 05/18/21 20:29 05/18/21 20:24 05/18/21 20:19 05/18/21 20:14 05/18/21 20:09 05/18/21 20:04 05/18/21 20:00 100 05/18/21 19:59 05/18/21 19:54 05/18/21 19:49 05/18/21 19:44 05/18/21 19:39 05/18/21 19:34 05/18/21 19:29 05/18/21 19:24 05/18/21 19:19 05/18/21 19:14 05/18/21 19:09 05/18/21 19:04 05/18/21 19:00 05/18/21 18:59 05/18/21 18:54 05/18/21 18:49 05/18/21 18:44 05/18/21 18:39 05/18/21 18:34 05/18/21 18:29 05/18/21 18:24 05/18/21 18:19 05/18/21 18:14 05/18/21 18:09 05/18/21 18:04 05/18/21 18:00 05/18/21 17:59 05/18/21 17:54 05/18/21 17:49 05/18/21 17:44 05/18/21 17:39 05/18/21 17:34 05/18/21 17:29 05/18/21 17:24 05/18/21 17:19 05/18/21 17:14 05/18/21 17:09 05/18/21 17:04 05/18/21 17:00 05/18/21 16:59 05/18/21 16:54 05/18/21 16:49 05/18/21 16:44 05/18/21 16:39 05/18/21 16:34 05/18/21 16:29 05/18/21 16:24 05/18/21 16:19 05/18/21 16:14 05/18/21 16:09 05/18/21 16:04 05/18/21 16:00 05/18/21 15:59 05/18/21 15:54 05/18/21 15:49 05/18/21 15:44 05/18/21 15:39 05/18/21 15:34 05/18/21 15:29 05/18/21 15:24 05/18/21 15:19 05/18/21 15:14 05/18/21 15:09 05/18/21 15:04 05/18/21 15:00 05/18/21 14:59 05/18/21 14:54 05/18/21 14:49 05/18/21 14:44 05/18/21 14:39 05/18/21 14:34 05/18/21 14:29 05/18/21 14:24 05/18/21 14:19 05/18/21 14:14 05/18/21 14:09 05/18/21 14:04 05/18/21 14:00 97 05/18/21 13:59 05/18/21 13:54 05/18/21 13:50 05/18/21 13:49 05/18/21 13:44 05/18/21 13:39 05/18/21 13:34 05/18/21 13:29 05/18/21 13:24 05/18/21 13:20 05/18/21 13:19 05/18/21 13:14 05/18/21 13:09 05/18/21 13:04 05/18/21 12:59 05/18/21 12:54 05/18/21 12:51 05/18/21 12:49 05/18/21 12:44 05/18/21 12:39 05/18/21 12:34 05/18/21 12:29 05/18/21 12:24 05/18/21 12:20 05/18/21 12:19 05/18/21 12:14 05/18/21 12:12 99 05/18/21 12:09 05/18/21 12:04 05/18/21 11:59 05/18/21 11:13 05/18/21 11:08 05/18/21 11:03 05/18/21 10:58 05/18/21 10:53 05/18/21 10:49 05/18/21 10:48 05/18/21 10:43 05/18/21 10:38 05/18/21 10:37 05/18/21 10:33 05/18/21 10:28 05/18/21 10:23 05/18/21 10:19 05/18/21 10:18 05/18/21 10:15 98 05/18/21 10:13 05/18/21 10:08 05/18/21 10:03 05/18/21 09:58 05/18/21 09:53 05/18/21 09:49 05/18/21 09:48 05/18/21 09:43 05/18/21 09:38 05/18/21 09:33 05/18/21 09:28 05/18/21 09:23 05/18/21 09:19 05/18/21 09:18 05/18/21 09:13 05/18/21 09:08 05/18/21 09:03 05/18/21 08:58 Intake and Output 05/18/21 05/19/21 05/19/21 21:59 06:59 14:59 Intake Total Output Total 325 Balance -325 Intake: IV Lactated Ringers 1,000 ml @ 125 mls/hr IV DIRECT ALYSA Rx#:[id number] MAGNESIUM SULFATE 40GM/ 1000ML 40 gm In 1,000 ml @ 2 GM/HR 50 mls/hr IV DIRECT ALYSA Rx#:[id number] Oral Output: Urine 325 Indwelling Catheter 325 Uretheral ([place]) Other: Total, Intake Amount Total, Output Amount 325 - Exam Breasts: Present: deferred Abdomen: Present: soft, distention (mild ) Uterus: Present: fundal height below umbilicus Extremities: Absent: tenderness, edema Incision: Present: dressed - Labs Labs: Abnormal lab results 05/18/21 05/18/21 05/18/21 Range/Units 13:59 17:25 19:41 Hgb 9.4 L (10.1-14.3) gm/dl Hct 27.1 L D (30.3-42.9) % POC Glucose (70-105) mg/dL Magnesium 4.10 H 5.30 H (1.7-2.3) mg/dL 05/18/21 05/19/21 Range/Units 21:06 05:50 Hgb (10.1-14.3) gm/dl Hct (30.3-42.9) % POC Glucose 137 H 128 H (70-105) mg/dL Magnesium (1.7-2.3) mg/dL
--- NOTE | 2021-05-19 09:57 | Discharge Summary ---
Providers - Providers Date of Admission: 05/17/21 20:06 Date of discharge: 05/19/21 Attending physician: JOSE FELIX Primary care physician: JOSE FELIX Hospitalization Reason for admission: other ( demise ) Delivery: Procedure: section, primary low transverse Procedure details: Please see delivery note Incision: intact (with steristrips ) Other procedures: none complications: none Discharge diagnosis: delivery ( demise ) baby: female Hospital course: Pt was admitted for demise noted at routine obstetric appt at 35 wks. She underwent primary section which she tolerated well. Her postoperative course was complicated by superimposed preeclamspia which was treated with magne sium sulfate for seizure prophylaxis, and the patient was started on labetalol 200 mg BID. She met discharge criteria on POD#2. She will follow up as scheduled on Friday May 21, 2021. Condition at discharge: Stable Disposition: 01 HOME / SELF CARE / HOMELESS - Discharge Diagnoses (1) demise > 22 weeks, delivered, current hospitalization Status: Acute (2) Status post primary low transverse section Status: Acute (3) Morbid obesity Status: Acute (4) Chronic hypertension with superimposed pre-eclampsia Status: Acute (5) Prediabetes Status: Acute (6) Anemia Status: Acute Qualifiers: Anemia type: unspecified type Qualified Code(s): D64.9 - Anemia, unspecified Plan - Discharge Medications Prescriptions: Ferrous Sulfate [Feosol 325 MG tab] 325 mg PO BID #60 tablet labetaloL [Labetalol 200mg TAB] 200 mg PO BID #60 Ibuprofen [Motrin] 800 mg PO Q8HR PRN #30 tablet PRN Reason: Pain, Moderate (4-6) oxyCODONE /ACETAMINOPHEN [Percocet 5/325] 1 tab PO Q6HR PRN #30 tablet PRN Reason: Pain - Provider Discharge Summary Activity: routine, no sex for 6 weeks, no heavy lifting 4 weeks, no strenuous exercise Diet: routine Instructions: routine Additional instructions: [] Smoking cessation referral if applicable(refer to patient education folder for contact #) [] Refer to [facility] Booklet Call your doctor immediately for: * Fever > 100.5 * Heavy vaginal bleeding ( >1 pad per hour) * Severe persistent headache * Shortness of breath * Reddened, hot, painful area to leg or breast * Drainage or odor from incision. * Keep incision clean and dry at all times and follow doctor's instructions regarding bathing/showering - Follow up plan Follow up: JOSE FELIX MD [Primary Care Provider] - 05/21/21
[2021-05-19] MEDS ORDERED: NIFEdipine XL 60 MG TAB PO SCH (10:00)
[2021-05-19 13:58] VITALS: BP 142/76
== END 2021-05-19 14:08 | disposition home or self-care (01) | DRG 786 ==
LOC: TRG 09:12 → APU 09:13 → OB 19:52 → TRG 20:06 → LD 05-18 08:10 → OB 05-19 09:11
PROVIDERS: ADMIT Obstetrics & Gynecology; ATTEND Obstetrics & Gynecology
PROC: 10D00Z1 Extraction of Products of Conception, Low, Open Approach (ICD-10-PCS; principal; 2021-05-17)
DX: O36.4XX0 Maternal care for intrauterine death, not applicable or unspecified (principal); O24.12 Pre-existing type 2 diabetes mellitus, in childbirth; O10.92 Unspecified pre-existing hypertension complicating childbirth; Z3A.35 35 weeks gestation of pregnancy; Z37.1 Single stillbirth; O90.81 Anemia of the puerperium; O99.214 Obesity complicating childbirth; E66.01 Morbid (severe) obesity due to excess calories; O14.95 Unspecified pre-eclampsia, complicating the puerperium; Z88.0 Allergy status to penicillin
CPT/HCPCS: 36415; 80053; 82962; 83735; 85014; 85018; 85025; 86592; 86850; 86900; 86901; 88307; G0378; J3490; J7121; J0360; J1100; J1885; J2250; J2405; J2590; J2765; J3475; J7120; U0003